=== PATIENT | male | born 1950 | race Caucasian/White ===

== ENCOUNTER 2019-02-01 13:13 | Observation (INO) ==
[2019-02-01] MEDS ORDERED: Furosemide 40 MG/4 ML VIAL IVP ONE (14:09)
--- NOTE | 2019-02-01 14:11 | Emergency Department Note ---
Disposition Clinical Impression: Congestive heart failure Qualifiers: Heart failure type: unspecified Disposition: Admitted As Inpatient Condition: Fair Time of Disposition: 16:14 General Adult HPI - General Chief complaint: ED Shortness of Breath/Dyspnea Stated complaint: BLAS Time Seen by Provider: 02/01/19 13:36 Source: patient Limitations: no limitations Nursing Notes Reviewed: Yes Vital Signs Reviewed: Yes - History of Present Illness HPI Narrative: 68-year-old male with a past medical history of aortic aneurysm, hyperlipidemia, hypertension, myocardial infarction, CHF, type 2 diabetes, cardiomyopathy, TIA, valvular heart disease presents with 3 day history of increased shortness of breath, and bilateral lower extremity swelling. Patient states that he recently was at the hospital for a CHF exacerbation, but was released so he can go on vacation. He states that on vacation he was fatigued for most of the vacation had difficulty walking without getting short of breath had orthopnea and increased swelling in his legs. He self increased his dose of Lasix from 40 mg daily milligrams and even 121 time to get fluid off his legs, and lungs. He is now presenting here because he states he thinks he is having another CHF exacerbation. He denies any chest pain, fevers, chills, nausea, vomiting, pain ripping through his back, radiating pain into his jaw neck or arm, lightheadedness. He endorses fatigue, shortness of breath, subjective weight gain and pitting edema. Pain Scale: 0 - Related Data Home Medications Medication Instructions Recorded Confirmed Acetaminophen w/Cod 300-30 mg 1 tab PO DAILY PRN 01/04/18 02/02/19 [Tylenol w/Codeine #3] Furosemide [Lasix] 40 mg PO DAILY 01/04/18 02/02/19 NIFEdipine XL (24 HR) [Procardia 30 mg PO BID 01/04/18 02/01/19 XL] Omeprazole [PriLOSEC] 20 mg PO DAILY 01/04/18 02/02/19 Apixaban [Eliquis] 5 mg PO DAILY 02/02/19 02/02/19 Atorvastatin [Lipitor] 40 mg PO DAILY 02/02/19 02/02/19 Lisinopril [Zestril] 5 mg PO DAILY 02/02/19 02/02/19 Mirtazapine [Remeron] 15 mg PO HS PRN 02/02/19 02/02/19 Propranolol HCl [Innopran Xl] 120 mg PO DAILY 02/02/19 02/02/19 Previous Rx's Medication Instructions Recorded Potassium Chloride 10 meq PO DAILY #30 tab.er.prt 01/16/19 Allergies Allergy/AdvReac Type Severity Reaction Status Date / Time No Known Allergies Allergy Verified 02/02/19 20:46 All systems ED: reviewed and negative except as stated. Review of Systems: As Per HPI Constitutional: Reports: weakness, weight change. Denies: fever, chills Cardiovascular: Reports: dyspnea on exertion, orthopnea, edema. Denies: chest pain, palpitations, syncope, paroxysmal nocturnal dyspnea Respiratory: Reports: dyspnea. Denies: cough, wheezes Past Medical History - Past Medical History Medical history: Reports: aortic aneurysm, cardiomyopathy, CHF, diabetes, hyperlipidemia, hypertension, myocardial infarction, TIA, valvular heart disease Psychiatric history: Reports: no psych history - Social History Smoking Status: Former smoker Smokeless Tobacco Status: No Alcohol use: Reports: rarely Drug use: Reports: none Physical Exam Vital signs noted please see nurse's notes. Gen.: Well-developed, well-nourished patient lying in bed who appears nontoxic. Head: Atraumatic, normocephalic. Eyes: Sclerae anicteric. ENT: Mucous membranes moist. Neck: Positive JVD. Heart: Irregular rate, S3 Lungs: Normal respiratory pattern without respiratory distress, bibasilar crackles, wet. Abdomen: Soft, nontender, nondistended, no guarding or peritoneal signs. Positive hepatojugular reflex Skin: Warm and dry without rash. Neurologic: Awake, alert with normal speech and mental status. Cranial nerves grossly intact. No focal deficits or lateralizing signs. Psychiatric: Normal mood and affect. Musculoskeletal: 1+ peripheral edema. No signs of trauma or DVT. Peripheral Vascular: Radial pulses 2+ and symmetrical b/l. - General Limitations: no limitations General appearance: alert, in no apparent distress Course Vital Signs Temperature 97.6 F 02/01/19 13:13 Pulse Rate 100 02/01/19 13:13 Respiratory Rate 18 02/01/19 13:13 Blood Pressure 117/66 02/01/19 13:13 O2 Sat by Pulse Oximetry 95 02/01/19 13:13 Temperature 98.2 F 02/03/19 06:54 Pulse Rate 86 02/03/19 06:54 Respiratory Rate 21 02/03/19 06:54 Blood Pressure 109/69 02/03/19 06:54 O2 Sat by Pulse Oximetry 94 02/03/19 06:54 Oxygen Delivery Oxygen Delivery Room Air Medical Decision Making - MDM Narrative Medical decision making narrative: Patient was greeted upon arrival to the emergency department, a thorough physical exam, and history were obtained from the patient. Basic labs were obtained and an EKG was performed. Two-view chest x-ray was obtained. Broad differential was explored including a CHF exacerbation, acute coronary syndrome, pulmonary infection. EKG without any acute coronary syndrome but it did show some A. fib. She does chronically in A. fib, takes blood thinners on a daily basis. His elevated BNP, chest x-ray shows pulmonary congestion, and a pleural effusion on the right lung, spoke with the inpatient hospitalist team and they agreed to accept him on his service for cardiac workup, and to for his CHF exacerbation. Dr. Sterling is the accepting physician. He is in agreement to come in to the hospital. - Medical Records Medical records reviewed: Yes I reviewed the patient's medical records. - Lab Data Lab results reviewed: Yes I reviewed the patient's lab results. Result diagrams: 02/01/19 13:57 02/03/19 01:05 Lab Results 02/01/19 02/01/19 02/01/19 Range/Units 13:57 13:57 13:57 WBC 4.2 L (4.3-11.1) K/mcL RBC 4.49 (4.19-5.50) M/mcL Hgb 13.9 (12.9-16.9) g/dL Hct 41.8 (37.5-50.1) % MCV 93.1 (83.0-100.0) fL MCH 31.0 (28.0-33.3) pg MCHC 33.3 (31.6-35.5) g/dL RDW 14.4 (11.5-14.5) % Plt Count 248 (140-400) K/mcL MPV 10.2 (9.4-12.4) fL Immature Gran % 0.5 (0-4) % Seg Neutrophils % 67.9 % Lymphocytes % 17.9 % Monocytes % 9.7 % Eosinophils % 3.3 % Basophils % 0.7 % Neutrophils # 2.9 (1.6-8.9) K/mcL Lymphocytes # 0.8 (0.6-4.6) K/mcL Monocytes # 0.4 (0.0-1.3) K/mcL Eosinophils # 0.1 (0.0-0.6) K/mcL Basophils # 0.0 (0.0-0.2) K/mcL Sodium 146 H (136-145) mEq/L Potassium 3.3 L (3.5-5.1) mEq/L Chloride 104 (98-107) mEq/L Carbon Dioxide 27 (23-29) mEq/L BUN 12 (8-23) mg/dL Creatinine 1.06 (0.70-1.30) mg/dL Est GFR ( Amer) > 60 (> 60) Est GFR (Non-Af Amer) > 60 (> 60) BUN/Creatinine Ratio 11 (6-26) Glucose 111 H (70-105) mg/dL Calculated Osmolality 302 H (280-300) Calcium 9.0 (8.6-10.3) mg/dL Troponin I 0.03 (< 0.04) ng/mL B-Natriuretic Peptide 597 H (Less than 100) pg/mL Procalcitonin (0.00-0.15) ng/mL 02/01/19 Range/Units 13:57 WBC (4.3-11.1) K/mcL RBC (4.19-5.50) M/mcL Hgb (12.9-16.9) g/dL Hct (37.5-50.1) % MCV (83.0-100.0) fL MCH (28.0-33.3) pg MCHC (31.6-35.5) g/dL RDW (11.5-14.5) % Plt Count (140-400) K/mcL MPV (9.4-12.4) fL Immature Gran % (0-4) % Seg Neutrophils % % Lymphocytes % % Monocytes % % Eosinophils % % Basophils % % Neutrophils # (1.6-8.9) K/mcL Lymphocytes # (0.6-4.6) K/mcL Monocytes # (0.0-1.3) K/mcL Eosinophils # (0.0-0.6) K/mcL Basophils # (0.0-0.2) K/mcL Sodium (136-145) mEq/L Potassium (3.5-5.1) mEq/L Chloride (98-107) mEq/L Carbon Dioxide (23-29) mEq/L BUN (8-23) mg/dL Creatinine (0.70-1.30) mg/dL Est GFR ( Amer) (> 60) Est GFR (Non-Af Amer) (> 60) BUN/Creatinine Ratio (6-26) Glucose (70-105) mg/dL Calculated Osmolality (280-300) Calcium (8.6-10.3) mg/dL Troponin I (< 0.04) ng/mL B-Natriuretic Peptide (Less than 100) pg/mL Procalcitonin < 0.02 (0.00-0.15) ng/mL - Radiology Data Radiology results reviewed: Yes I reviewed the patient's radiology results. Chest X-Ray 02/01/19 14:05 IMPRESSION: Findings suggest mild congestive heart failure D/ / Oniel St MD / Oniel St MD Interpreting Provider: Oniel St MD - EKG Data EKG #1 EKG results narrative: EKG was interpreted by me. The rhythm is atrial fibrillation with rapid ventricular response, with premature ventricular complexes. Left axis deviation There is a bundle branch block. The NH interval is The QRS duration is163 within normal limits and the QTC is within normal limits and 451. There are no ST elevations or depressions and no T-wave inversions or hyper acuity. There is no evidence of pathologic Q waves. There is no evidence of WPW, Brugada, HOCM. Attestation Statement - Attestation Attestation: I, Cruz Martin, examined this patient and my medical decision-making was reviewed with the SURGICAL RESIDENT/PA/Advanced Practice Nurse/Resident Physician. I agree with the documented findings, disposition and treatment plan as described except to the extent set forth below. 68-year-old male presents emergency Department with concerns of difficulty breathing. Patient has a history congestive heart failure felt the same. Patient has a history of atrial fibrillation and is unclear if this is parox ysmal or chronic. Patient is currently taking liquids over the past few weeks. Patient denies nausea vomiting, chest pain, syncope, abdominal pain. He does have pedal edema bilaterally. He has difficulty with breathing with exertion and laying flat. Patient chest x-ray shows pulmonary edema. BNP was elevated. Patient does not feel comfortable returning home. He has not seen cardiology in over a year. She will be admitted to hospitalist for further care and evaluation of congestive heart failure in the setting of atrial fibrillation with a rapid ventricular rate.
[2019-02-01 14:23] LABS: Basophils % 0.7 %; Eosinophils # 0.1 K/mcL (0.0-0.6); Eosinophils % 3.3 %; Hematocrit 41.8 % (37.5-50.1); Hemoglobin 13.9 g/dL (12.9-16.9); Immature Granulocytes % 0.5 % (0-4); Lymphocytes # 0.8 K/mcL (0.6-4.6); Lymphocytes % 17.9 %; Mean Corpuscular HGB Conc 33.3 g/dL (31.6-35.5); Mean Corpuscular Volume 93.1 fL (83.0-100.0); Mean Platelet Volume 10.2 fL (9.4-12.4); Monocytes # 0.4 K/mcL (0.0-1.3); Monocytes % 9.7 %; Neutrophils # 2.9 K/mcL (1.6-8.9); Platelet Count 248 K/mcL (140-400); Red Blood Count 4.49 M/mcL (4.19-5.50); Red Cell Distribution Width 14.4 % (11.5-14.5); Segmented Neutrophils % 67.9 %; White Blood Count 4.2 K/mcL (4.3-11.1)
[2019-02-01 14:42] LABS: BUN/Creatinine Ratio 11 (6-26); Blood Urea Nitrogen 12 mg/dL (8-23); Carbon Dioxide 27 mEq/L (23-29); Chloride 104 mEq/L (98-107); Glucose 111 mg/dL (70-105); Osmolality,Calculated 302 (280-300); Potassium 3.3 mEq/L (3.5-5.1); Sodium 146 mEq/L (136-145); Troponin I 0.03 ng/mL (< 0.04); eGFR For African Americans > 60 (> 60); eGFR For Non-African Americans > 60 (> 60)
--- NOTE | 2019-02-01 16:55 | Internal Med History&Physical ---
Date of Encounter: 02/01/19 Time of Encounter: 16:53 Internal Medicine - H&P: HPI Chief complaint: shortness of breath Admitted From: Home Plans for Post Hospital Care: Home History of present illness: Mr. Verma is a 68 year old male past medical history of hypertension, thoracic aortic aneurysm stable last year, possible cardiomyopathy, TIA, aortic valve replacement bioprosthetic about 15 years ago came in with complaint of shortness of breath. He was seen about start of this month at [facility] and kept overnight for elevated troponin from CHF. He was discharged in next day as he had last for medication. He came in today with complain of increased shortness of breath and swelling of his lower extremity. He took couple extra doses of Lasix over the past few days however the swelling did not went away which made him to come to the ER. He denied any chest pain. He reports having echocardiogram last year when he had similar admission when he was told his pumping function was stable and his aneurysm was stable. He recalls ejection fraction to be around 45%. He had LHC done as well last year however reports are not available in [facility]. He reportedly did not found any blockages. He has not seen a utilization review rn for last year. He denies any chest pain, abdominal pain, nausea vomiting or diarrhea. He was diagnosed to have atrial fibrillation on his [facility] visit and started on Eliquis. He has been on propranolol before for blood pressure and related to his aneurysm. He reports having some sensation of fluttering on and off and palpitation but denies any lightheadedness or dizziness or syncopal episodes. Denies any tingling numbness nausea vomiting or diarrhea. Denies any urinary or bowel complaints. Patient was evaluated in the ER and was found to have mild pulmonary congestion on chest x-ray and elevated BNP and with his history of CHF admission was requested. Labs are remarkable for mild hypokalemia, sodium 146, BNP of 597. He was given a dose of Lasix IV 40. Past Med Surg Social Fam HX - Past Medical History Medical history: aortic aneurysm, cardiomyopathy, CHF, hyperlipidemia, hypertension, myocardial infarction, TIA, valvular heart disease Additional medical history: heart valvue replacement Psychiatric history: no psych history - Past Surgical History Additional surgical history: AVR, tonsillectomy - Social History Smoking Status: Former smoker Smokeless Tobacco Status: No Alcohol use: rarely Drug use: none - Additional Family History Additional family history: Mother had cervical ca, father had lung ca Internal Medicine - H&P: Meds Acetaminophen w/Cod 300-30 mg [Tylenol w/Codeine #3] 1 each PO Q6HR PRN 01/04/18 [History] Furosemide [Lasix] 40 mg PO DAILY 01/04/18 [History] NIFEdipine XL (24 HR) [Procardia XL] 30 mg PO BID 01/04/18 [History] Omeprazole [PriLOSEC] 20 mg PO DAILY 01/04/18 [History] Propranolol HCl [Inderal LA] 120 mg PO DAILY 01/04/18 [History] Apixaban [Eliquis] 5 mg PO BID #60 tablet 01/16/19 [Rx] Potassium Chloride 10 meq PO DAILY #30 tab.er.prt 01/16/19 [Rx] Allergy/AdvReac Type Severity Reaction Status Date / Time No Known Allergies Allergy Verified 01/04/18 00:21 All Systems PM: A 10-system review of systems was performed and is negative for pertinent findings except as documented above in the HPI. - Constitutional Vitals: Temp Pulse Resp BP Pulse Ox 97.6 F 97 18 106/60 96 02/01/19 13:48 02/01/19 16:23 02/01/19 16:23 02/01/19 16:23 02/01/19 16:23 Exam: Constitutional: Vitals as noted. Conversant. No Apparent Distress. Well groomed. No obvious deformities. Eyes : Sclera white, conjunctiva clear, no lid lag, PEARLA. ENT : Grossly normal hearing. Oropharyngeal exam unremarkable. Moist mucus membranes. Respiratory : No accessory muscle use. Crackles at b/l lung base Cardiovascular : irregular, +S1, +S2. 3/6 ejection systolic murmur. No chest wall tenderness GI/Abdominal : Soft, Non-tender, Non-distended, normal bowel sounds, no peritoneal signs. Musculoskeletal: no deformity noted.2+ pedal edema, no calf tenderness. Neurological: AO X3, CN II-XII grossly intact, grossly normal motor and sensory exam. Skin: No skin rash, lesions or ulcers noted. Pych: Good insight and judgement. Intact memory. AOx3. Internal Med - H&P Results - Labs CBC & Chem 7: 02/01/19 13:57 02/01/19 13:57 Labs: Short CBC 02/01/19 Range/Units 13:57 WBC 4.2 L (4.3-11.1) K/mcL Hgb 13.9 (12.9-16.9) g/dL Hct 41.8 (37.5-50.1) % Plt Count 248 (140-400) K/mcL Neutrophils # 2.9 (1.6-8.9) K/mcL BMP 02/01/19 13:57 Sodium 146 H Potassium 3.3 L Chloride 104 Carbon Dioxide 27 BUN 12 Creatinine 1.06 Glucose 111 H Calcium 9.0 Cardiac Enzymes 02/01/19 Range/Units 13:57 Troponin I 0.03 (< 0.04) ng/mL - EKG Data -: EKG Interpreted by Myself (afib with RVR) - Impressions ITS Impressions Chest X-Ray 02/01/19 14:05 IMPRESSION: Findings suggest mild congestive heart failure D/ / Oniel St MD / Oniel St MD Interpreting Provider: Oniel St MD - Assessment and Plan (1) Shortness of breath Current Visit: Yes Status: Acute (2) Atrial fibrillation with RVR Current Visit: Yes Status: Acute (3) Acute on chronic diastolic (congestive) heart failure Current Visit: Yes Status: Acute (4) Atrial fibrillation Current Visit: No Status: Acute Qualifiers: Atrial fibrillation type: unspecified Qualified Code(s): I48.91 - Unspecified atrial fibrillation (5) Hypokalemia Current Visit: No Status: Acute - Summary of Assessment and Plan Summary of Assessment and Plan: Assessment Acute Acute on chronic diastolic CHF Hypokalemia Hypernatermia Afib with RVR Chronic ascending aortic aneurysm Diastolic CHF HTN HLD Afib TIA aortic valve disease s/p AVR bovine Plan Acute on chronic diastolic CHF: Shortness of breath and leg swelling likely due to CHF exacerbation. Denies any noncompliance with medication or salt restriction. Last Echo from 11/2017 with EF of 55%, diastolic dysfunction with elevated filling pressure, severe dilated left atrium. We will continue to diurese patient with IV Lasix 40 twice a day. Monitor urine output closely. Keep patient on salt and fluid restriction of 2 L. We will repeat echocardiogram for possible cardiomyopathy.. Possibly related to A. fib with RVR. We will start patient on his home propranolol and use metoprolol if needed for better rate control. Afib with RVR: EKG obtained in ER with heart rate of 104. We will monitor patient on telemetry. Continue patient's home propranolol if not taken today. We will use IV metoprolol for better rate control. May need adjustment of his propranolol. Continue patient on home Eliquis Hypokalemia: Possibly related to Lasix use. We will replete potassium as needed. Mild Hypernatermia: Unclear reason. Patient is hypervolemic clinically but with borderline high hypernatermia. Possible lab measurement vs lasix. Will obatin A1c and lipid panel and repeat BMP in am.
[2019-02-01] MEDS ORDERED: *HR* Metoprolol 5 MG/5 ML VIAL IVP PRN (17:00)
[2019-02-01] MEDS: Furosemide 40 MG/4 ML VIAL IVP SCH (19:09)
[2019-02-01] MEDS: Nitroglycerin 0.4 MG TAB.SUBL SL SCH (19:10)
[2019-02-01] MEDS: Apixaban 5 MG TABLET PO SCH (22:47)
[2019-02-02 04:50] LABS: BUN/Creatinine Ratio 13 (6-26); Blood Urea Nitrogen 13 mg/dL (8-23); Calcium 8.7 mg/dL (8.6-10.3); Carbon Dioxide 28 mEq/L (23-29); Chloride 104 mEq/L (98-107); Chol/HDL Ratio 3.9 (0-4.9); Cholesterol 148 mg/dL (< 200); Glucose 113 mg/dL (70-105); HDL Cholesterol 38 mg/dL (40-59); LDL Cholesterol,Calculated 90 mg/dL (0-99); Osmolality,Calculated 295 (280-300); Potassium 3.1 mEq/L (3.5-5.1); Sodium 142 mEq/L (136-145); Triglycerides 100 mg/dL (< 150); eGFR For African Americans > 60 (> 60); eGFR For Non-African Americans > 60 (> 60)
[2019-02-02] MEDS ORDERED: Perflutren Lipid Microsphere 1.3 ML in 0.9 % Sodium Chloride 8.7 ML IVP ONE (07:06)
[2019-02-02] MEDS: Propranolol LA (24 HR) 60 MG CAP.SA.24H PO SCH (09:55)
[2019-02-02] MEDS: Furosemide 40 MG/4 ML VIAL IVP SCH ×2 (09:55→17:31)
[2019-02-02] MEDS: Apixaban 5 MG TABLET PO SCH ×2 (09:55→20:49)
[2019-02-02 10:15] LABS: Estimated Average Glucose 134 mg/dl
--- NOTE | 2019-02-02 11:53 | Internal Med Progress Note ---
Hospitalist Progress Note - Encounter Date of Encounter: 02/02/19 Time of Encounter: 10:30 - Subjective Interval History: Mr. Verma is a 68 year old male with known past medical history of hypertension, thoracic aortic aneurysm stable last year, possible cardiomyopathy, chronic diastolic CHF, TIA, aortic valve replacement bioprosthetic about 15 years ago came in with complaint of shortness of breath and bilateral lower extremity edema. He was seen about start of this month at [facility] and kept overnight for elevated troponin from CHF. Pt stated he took couple extra doses of Lasix over the last couple of days however the swelling did not went away which made him to come to the ER. He denied any chest pain. He was admitted in the hospital placed him on patient monitor. He was placed on IV Lasix. Patient stated his symptoms are little better today. His bilateral extremity edema improved. However he still have moderate shortness of breath and dyspnea on exertion - Exam Vitals: Temp Pulse Resp BP Pulse Ox 98.7 F 80 16 121/88 93 02/02/19 03:21 02/02/19 03:21 02/02/19 03:21 02/02/19 03:21 02/02/19 03:21 Exam: Gen: Alert, awake, Oriented to time,place and person Chest: Diminished breath sounds B/L, No wheezing, No crackles, Mild rales at basal regions Heart: S1S2+ Afib, No murmurs Abd: Soft, NT, BS +, No organomegaly Ext: improving edema, pulses are palpable, No calf tenderness Neuro : No acute focal neuro deficits noticed Skin: No rash. - Assessment and Plan (1) Acute on chronic diastolic (congestive) heart failure Current Visit: Yes Status: Acute Assessment and Plan: Improving slowly cont IV Lasix cont close monitoring of electrolytes Reviewed Lipid panel - LDL @ 90 will f/u on 2 D Echo Cont Strict I & O and Daily weight (2) Atrial fibrillation Current Visit: No Status: Acute Assessment and Plan: rate well controlled with home med Inderal Cont eliquis for anti coag (3) Hypokalemia Current Visit: No Status: Acute Assessment and Plan: due to aggressive diuresis cont replacing (4) Shortness of breath Current Visit: Yes Status: Acute Assessment and Plan: Due to CHF exacerbation - Time Spent with Patient Total time spent is greater than 50% in coordination of care (as documented) at patient's floor/unit and/or counseling patient: Internal Medicine: Result - Labs CBC & Chem 7: 02/01/19 13:57 02/02/19 04:04 Labs: Short CBC 02/01/19 Range/Units 13:57 WBC 4.2 L (4.3-11.1) K/mcL Hgb 13.9 (12.9-16.9) g/dL Hct 41.8 (37.5-50.1) % Plt Count 248 (140-400) K/mcL Neutrophils # 2.9 (1.6-8.9) K/mcL BMP 02/01/19 02/02/19 13:57 04:04 Sodium 146 H 142 Potassium 3.3 L 3.1 L Chloride 104 104 Carbon Dioxide 27 28 BUN 12 13 Creatinine 1.06 1.03 Glucose 111 H 113 H Calcium 9.0 8.7 Cardiac Enzymes 02/01/19 Range/Units 13:57 Troponin I 0.03 (< 0.04) ng/mL - Impressions Impressions Chest X-Ray 02/01/19 14:05 IMPRESSION: Findings suggest mild congestive heart failure D/ / Oniel St MD / Oniel St MD Interpreting Provider: Oniel St MD Consult Discharge Plan - Plan Referrals: Omar Miranda DO [Primary Care Provider] - 02/06/19 11:30 am (2) Atrial fibrillation Qualifiers: Atrial fibrillation type: chronic Qualified Code(s): I48.2 - Chronic atrial fibrillation
[2019-02-02] MEDS ORDERED: Propranolol LA (24 HR) 60 MG CAP.SA.24H PO SCH (12:00)
--- NOTE | 2019-02-02 13:37 | Electrocardiograph Report ---
[facility] Date: 2019-02-01 Pat Name: Oniel Verma Department: 104 Room: 3B23 Gender: M Payroll And Benefits Assistant: Faviola DELA CRUZB: 1950 Requested By: Cruz Martin Order Number: [id number] Reading MD: Huan Morejon Measurements Intervals Adin Rate: 104 P: FL: 0 QRS: -45 QRSD: 163 T: 134 QT: 390 QTc: 451 Interpretive Statements ATRIAL FIBRILLATION WITH RAPID VENTRICULAR RESPONSE WITH ABERRANT CONDUCTION OR VENTRICULAR PREMATURE COMPLEXES MARKED LEFT AXIS DEVIATION LEFT BUNDLE BRANCH BLOCK Electronically Signed On 02-02-2019 13:35:31 EDT by Huan Morejon
[2019-02-02] MEDS: NIFEdipine XL (24 HR) 30 MG TAB.ER.24 PO SCH (20:49)
[2019-02-03 02:30] LABS: BUN/Creatinine Ratio 10 (6-26); Blood Urea Nitrogen 11 mg/dL (8-23); Calcium 8.7 mg/dL (8.6-10.3); Carbon Dioxide 30 mEq/L (23-29); Chloride 105 mEq/L (98-107); Glucose 181 mg/dL (70-105); Osmolality,Calculated 298 (280-300); Potassium 3.4 mEq/L (3.5-5.1); Sodium 142 mEq/L (136-145); eGFR For African Americans > 60 (> 60); eGFR For Non-African Americans > 60 (> 60)
[2019-02-03] MEDS: Apixaban 5 MG TABLET PO SCH (08:35)
[2019-02-03] MEDS: Propranolol LA (24 HR) 60 MG CAP.SA.24H PO SCH (08:36)
[2019-02-03] MEDS: NIFEdipine XL (24 HR) 30 MG TAB.ER.24 PO SCH (08:37)
[2019-02-03] MEDS: Furosemide 40 MG/4 ML VIAL IVP SCH (09:47)
--- NOTE | 2019-02-03 10:09 | Discharge Summary ---
- NOTES TO OUTPATIENT PROVIDER Notes to Outpatient Provider: f/u with PCP in one week. f/u with Cardiology in 1-2 weeks. Please take Lasix 40mg in AM and 20mg in PM x 3 days then continue at 40mg PO Daily. Since your HR is still slightly on higher side in high 80's I increased your Inderal to 160mg Daily. Date of Encounter: 02/03/19 Time of Encounter: 10:04 - Discharge Diagnosis (1) Acute on chronic diastolic (congestive) heart failure Priority: Primary Status: Acute (2) Shortness of breath Priority: Secondary Status: Acute (3) Atrial fibrillation Priority: Primary Status: Acute Qualifiers: Atrial fibrillation type: chronic Qualified Code(s): I48.2 - Chronic atrial fibrillation (4) Hypokalemia Priority: Secondary Status: Acute Hospital course: Mr. Verma is a 68 year old male with known past medical history of hypertension, thoracic aortic aneurysm stable last year, possible cardiomyopathy, chronic diastolic CHF, TIA, aortic valve replacement bioprosthetic about 15 years ago came in with complaint of shortness of breath and bilateral lower extremity edema. He was seen about start of this month at [facility] and kept overnight for elevated troponin from CHF. Pt stated he took couple extra doses of Lasix over the last couple of days however the swelling did not went away which made him to come to the ER. He denied any chest pain. He was admitted in the hospital and placed him on engine monitor. He was placed on IV Lasix. His symptoms started improving slowly. His 2 D Echo showed indeterminate diastolic function, LV systolic function was difficult to evaluate due to his body habitus. His HR was in high 80's so increased his Inderal to 160mg, however I requested the pt to talk to PCP / Cardiology to switch to Cardio selective BB ( Metoprolol ) probably. - Time Spent with Patient Total time spent providing and/or coordinating discharge services: - Discharge Medications Prescriptions: New Propranolol HCl [Inderal LA] 160 mg PO DAILY #30 cap.sa.24h Continued Atorvastatin [Lipitor] 40 mg PO DAILY Lisinopril [Zestril] 5 mg PO DAILY Apixaban [Eliquis] 5 mg PO DAILY Mirtazapine [Remeron] 15 mg PO HS PRN PRN Reason: Sleep Furosemide [Lasix] 40 mg PO DAILY Omeprazole [PriLOSEC] 20 mg PO DAILY NIFEdipine XL (24 HR) [Procardia XL] 30 mg PO BID Acetaminophen w/Cod 300-30 mg [Tylenol w/Codeine #3] 1 tab PO DAILY PRN PRN Reason: Headache Potassium Chloride 10 meq PO DAILY #30 tab.er.prt Discontinued Propranolol HCl [Innopran Xl] 120 mg PO DAILY Home Medications: Acetaminophen w/Cod 300-30 mg [Tylenol w/Codeine #3] 1 tab PO DAILY PRN 01/04/18 [History] Furosemide [Lasix] 40 mg PO DAILY 01/04/18 [History] NIFEdipine XL (24 HR) [Procardia XL] 30 mg PO BID 01/04/18 [History] Omeprazole [PriLOSEC] 20 mg PO DAILY 01/04/18 [History] Potassium Chloride 10 meq PO DAILY #30 tab.er.prt 01/16/19 [Rx] Apixaban [Eliquis] 5 mg PO DAILY 02/02/19 [History] Atorvastatin [Lipitor] 40 mg PO DAILY 02/02/19 [History] Lisinopril [Zestril] 5 mg PO DAILY 02/02/19 [History] Mirtazapine [Remeron] 15 mg PO HS PRN 02/02/19 [History] Propranolol HCl [Inderal LA] 160 mg PO DAILY #30 cap.sa.24h 02/03/19 [Rx] Allergies/Adverse Reactions: Allergy/AdvReac Type Severity Reaction Status Date / Time No Known Allergies Allergy Verified 02/02/19 20:46 Date of admission: 02/01/19 16:20 Primary care physician: Omar Miranda DO Consults: 02/02/19 13:59 Consult to Nurse Navigator [CONS] Routine Comment: CHF - Constitutional Vitals: Temp Pulse Resp BP Pulse Ox 98.2 F 86 21 109/69 94 02/03/19 06:54 02/03/19 06:54 02/03/19 06:54 02/03/19 06:54 02/03/19 06:54 General appearance: Present: A&O X 3, no acute distress, answers questions appropriately Exam: Gen: Alert, awake, Oriented to time,place and person Chest: Diminished breath sounds B/L, No wheezing, No crackles, No rales Heart: S1S2+ Afib No murmurs Abd: Soft, NT, BS +, No organomegaly Ext: No edema, pulses are palpable, No calf tenderness Neuro : No acute focal neuro deficits noticed Skin: No rash. - Patient Status Disposition: Home, Self-Care Condition: Good Overall status at discharge: patient is back to baseline - Discharge Instructions Follow Up With: Omar Miranda DO [Primary Care Provider] - 02/06/19 11:30 am Bharati Quintana MD [Non-Partnered Physician] - - Diet and Activity Activity: increase activity as tolerated Diet: low fat, low cholesterol, low salt diet
[2019-02-03 10:28] VITALS: BP 106/68
[2019-02-04] MEDS ORDERED: Propranolol LA (24 HR) 60 MG CAP.SA.24H PO SCH (09:00)
== END 2019-02-03 10:47 | disposition home or self-care (01) ==
LOC: 3BNU 13:13 → EMEROOARM 13:13 → SUATTDRO 16:20 → 3BNU 16:44
PROVIDERS: ADMIT Internal Medicine; ATTEND Family Medicine